=== PATIENT | female | born 1965 | race Caucasian/White ===

== ENCOUNTER 2017-04-13 16:19 | Emergency (ER) | payer OTHER ==
[~2017-04-13] VITALS: Ht 162.6 cm; Wt 54.0 kg
[2017-04-13 16:29] VITALS: Ht 162.6 cm; Wt 54.0 kg
[2017-04-13] MEDS ORDERED: ONDANSETRON (ODT) 4 MG TAB ODT STA (20:35)
[2017-04-13] MEDS ORDERED: HYDROCODONE/APAP (5/325) TAB PO ONE (21:00)
--- NOTE | 2017-04-13 21:10 | RADRPT ---
PROCEDURE: XR Right Ankle. CLINICAL INDICATION: Trauma due to a fall. Right ankle pain. TECHNIQUE: 3 views. Frontal, lateral, and oblique. COMPARISON: None. FINDINGS: There is no fracture or dislocation. There is lateral soft tissue swelling. The soft tissues are otherwise normal. Articular surfaces are intact. There is no lytic or blastic lesion. There is no radiopaque foreign body. IMPRESSION: 1. Lateral soft tissue swelling. 2. Otherwise unremarkable images of the right ankle. RPTAT: QQ .Dameon Victoria MD, MD Date Time Electronically viewed and signed by .Dameon Victoria MD, MD on 04/13/2017 21:10 .R/
--- NOTE | 2017-04-13 21:10 | RADRPT ---
PROCEDURE: XR Right Foot. CLINICAL INDICATION: Trauma due to a fall. Right foot pain. TECHNIQUE: 3 views. Frontal, lateral, and oblique. COMPARISON: None. FINDINGS: There is no fracture or dislocation. The soft tissues are normal. Articular surfaces are intact. There is no lytic or blastic lesion. There is no radiopaque foreign body. IMPRESSION: 1. Normal images of the right foot. RPTAT: QQ .Dameon Victoria MD, MD Date Time Electronically viewed and signed by .Dameon Victoria MD, on 04/13/2017 21:10 .R/
[2017-04-13] MEDS ORDERED: BACI28.34 TOP (21:15)
[2017-04-13] MEDS ORDERED: NAPR-260 PO (21:15)
--- NOTE | 2017-04-13 21:35 | ERD ---
ER Documentation Chief Complaint Chief Complaint PATIENT BIB RA C/O RIGHT FOOT PAIN S/P TRIP AND FALL YESTERDAY DENIES KO HPI Patient is a 52-year-old female brought in by ambulance with complaints of right foot and right lateral ankle pain after stepping into a pothole yesterday. She states she felt a pop/crack when the injury occurred. She has noticed associated swelling. Symptoms are worse with ambulation. She has taken no medication for relief of symptoms. She denies fevers, chills, other injuries, head injury, or other symptoms currently. ROS All systems reviewed and are negative except as per history of present illness. Medications Home Meds Active Scripts Bacitracin* (Bacitracin Zinc Oint*) 28.35 Gm Oint, 1 APPLIC TOP BID, #1 TUB APPLI TO Prov:LEATHA CHUN PA-C 04/13/17 Naproxen* (Naprosyn*) 500 Mg Tablet, 500 MG PO BID Y for PAIN AND/OR INFLAMMATION, #30 TAB Prov:LEATHA CHUN PA-C 04/13/17 Allergies Allergies: Coded Allergies: Penicillins (Verified Allergy, Unknown, 04/13/17) PMhx/Soc History of Surgery: No Anesthesia Reaction: No Hx Neurological Disorder: No Hx Respiratory Disorders: No Hx Cardiac Disorders: No Hx Psychiatric Problems: No Hx Miscellaneous Medical Probl: No Hx Alcohol Use: No Hx Substance Use: Yes (heroin(used to )) Hx Tobacco Use: No Smoking Status: Current every day smoker Physical Exam Vitals Vital Signs Date Time Temp Pulse Resp B/P Pulse Ox O2 Delivery O2 Flow Rate FiO2 04/13/17 16:29 98.9 119 18 111/67 100 Physical Exam Const: Toxic, well-appearing female in no acute distress. Head: Atraumatic Eyes: Normal Conjunctiva ENT: Normal External Ears, Nose and Mouth. Ext: Soft tissue swelling noted to the lateral foot and to the lateral malleolus. There is tenderness palpation of the lateral malleolus of the right lower extremity. No obvious deformity. No open fracture. 2+ DP pulses noted in the right foot. Neur: Awake and alert Psych: Normal Mood and Affect Results 24 hrs Current Medications Medications (Trade) Dose Ordered Sig/Royce Route PRN Reason Start Time Stop Time Status Last Admin Dose Admin Acetaminophen/ Hydrocodone Bitart ([place] (5/325)) 1 tab ONCE ONCE PO 04/13/17 21:00 04/13/17 21:01 DC 04/13/17 20:38 Ondansetron HCl (Zofran Odt) 4 mg ONCE STAT ODT 04/13/17 20:35 04/13/17 20:37 DC 04/13/17 20:38 Procedures/MDM 52-year-old female presents to the emergency department with complaints of right foot and right ankle pain. X-rays were negative for any acute fracture. History and physical examination is consistent with a right ankle sprain. The patient was placed in an Mark wrap and was neurovascularly intact distally post application. The patient was given crutches with training. Patient was given copies of the negative x-ray results. She was discharged with prescription for naproxen, and because she also had an abrasion on the right lateral foot she is given a prescription for bacitracin. Patient was in agreement with the discharge diagnosis and plan. No evidence of life-threatening pathology at time of discharge. Pt/family in agreement with discharge plan/diagnosis. Pt/family advised to return immediately with any new or worsening symptoms. Follow-up with primary care physician within the next 1-2 days. Disclaimer: Inadvertent spelling and grammatical errors are likely due to EHR/ dictation software use and do not reflect on the overall quality of patient care. Also, please note that the electronic time recorded on this note does not necessarily reflect the actual time of the patient encounter. PROCEDURE: XR Right Ankle. CLINICAL INDICATION: Trauma due to a fall. Right ankle pain. TECHNIQUE: 3 views. Frontal, lateral, and oblique. COMPARISON: None. FINDINGS: There is no fracture or dislocation. There is lateral soft tissue swelling. The soft tissues are otherwise normal. Articular surfaces are intact. There is no lytic or blastic lesion. There is no radiopaque foreign body. IMPRESSION: 1. Lateral soft tissue swelling. 2. Otherwise unremarkable images of the right ankle. RPTAT: QQ .Dameon Victoria MD, MD Date Time Electronically viewed and signed by .Dameon Victoria MD, MD on 04/13/2017 21:10 PROCEDURE: XR Right Foot. CLINICAL INDICATION: Trauma due to a fall. Right foot pain. TECHNIQUE: 3 views. Frontal, lateral, and oblique. COMPARISON: None. FINDINGS: There is no fracture or dislocation. The soft tissues are normal. Articular surfaces are intact. There is no lytic or blastic lesion. There is no radiopaque foreign body. IMPRESSION: 1. Normal images of the right foot. RPTAT: QQ .Dameon Victoria MD, MD Date Time Electronically viewed and signed by .Dameon Victoria MD, on 04/13/2017 21:10 Departure Diagnosis: Primary Impression: Ankle sprain Encounter type: initial encounter Involved ligament of ankle: unspecified ligament Laterality: right Qualified Code: S93.401A - Sprain of right ankle , unspecified ligament, initial encounter Additional Impression: Abrasion Condition: Fair Patient Instructions: Treating Ankle Sprains, Abrasion Referrals: [facility] YOU HAVE RECEIVED A MEDICAL SCREENING EXAM AND THE RESULTS INDICATE THAT YOU DO NOT HAVE A CONDITION THAT REQUIRES URGENT TREATMENT IN THE EMERGENCY DEPARTMENT. FURTHER EVALUATION AND TREATMENT OF YOUR CONDITION CAN WAIT UNTIL YOU ARE SEEN IN YOUR DOCTORS OFFICE WITHIN THE NEXT 1-2 DAYS. IT IS YOUR RESPONSIBILITY TO MAKE AN APPOINTMENT FOR FOLOW-UP CARE. IF YOU HAVE A PRIMARY DOCTOR --you should call your primary doctor and schedule an appointment IF YOU DO NOT HAVE A PRIMARY DOCTOR YOU CAN CALL OUR PHYSICIAN REFERRAL HOTLINE AT IF YOU CAN NOT AFFORD TO SEE A PHYSICIAN YOU CAN CHOSE FROM THE FOLLOWING [facility] CL[facility]ICS [facility] [address] [facility] [address] [facility] [facility] [address] [facility] [address] [facility] [address] [facility]. [facility]. [address] Additional Instructions: Follow up with your PCP within the next 1-3 days for a repeat evaluation. If you require a referral to a specialist, your Primary Care Provider may be able to provide this for you. In most patient cases, a referral is not required. If you have further questions regarding this matter, please ask your Primary Care Provider. Return the the emergency department immediately if symptoms worsen or change. If you have any questions regarding medications, ask your pharmacist or us before you leave. If any adverse reactions, occur while taking your medications, discontinue the treatment and return to the emergency department immediately. If any new or worsening symptoms, uncontrolled fevers, or other unexplained symptoms occur, return to the emergency department immediately. Take your medications as directed, and complete the entire course of treatment. LEATHA CHUN PA-C Apr 13, 2017 21:35
--- NOTE | 2017-04-13 21:35 | ERD ---
ER Documentation Chief Complaint Chief Complaint PATIENT BIB RA C/O RIGHT FOOT PAIN S/P TRIP AND FALL YESTERDAY DENIES KO HPI Patient is a 52-year-old female brought in by ambulance with complaints of right foot and right lateral ankle pain after stepping into a pothole yesterday. She states she felt a pop/crack when the injury occurred. She has noticed associated swelling. Symptoms are worse with ambulation. She has taken no medication for relief of symptoms. She denies fevers, chills, other injuries, head injury, or other symptoms currently. ROS All systems reviewed and are negative except as per history of present illness. Medications Home Meds Active Scripts Bacitracin* (Bacitracin Zinc Oint*) 28.35 Gm Oint, 1 APPLIC TOP BID, #1 TUB APPLI TO Prov:LEATHA CHUN PA-C 04/13/17 Naproxen* (Naprosyn*) 500 Mg Tablet, 500 MG PO BID Y for PAIN AND/OR INFLAMMATION, #30 TAB Prov:LEATHA CHUN PA-C 04/13/17 Allergies Allergies: Coded Allergies: Penicillins (Verified Allergy, Unknown, 04/13/17) PMhx/Soc History of Surgery: No Anesthesia Reaction: No Hx Neurological Disorder: No Hx Respiratory Disorders: No Hx Cardiac Disorders: No Hx Psychiatric Problems: No Hx Miscellaneous Medical Probl: No Hx Alcohol Use: No Hx Substance Use: Yes (heroin(used to )) Hx Tobacco Use: No Smoking Status: Current every day smoker Physical Exam Vitals Vital Signs Date Time Temp Pulse Resp B/P Pulse Ox O2 Delivery O2 Flow Rate FiO2 04/13/17 16:29 98.9 119 18 111/67 100 Physical Exam Const: Toxic, well-appearing female in no acute distress. Head: Atraumatic Eyes: Normal Conjunctiva ENT: Normal External Ears, Nose and Mouth. Ext: Soft tissue swelling noted to the lateral foot and to the lateral malleolus. There is tenderness palpation of the lateral malleolus of the right lower extremity. No obvious deformity. No open fracture. 2+ DP pulses noted in the right foot. Neur: Awake and alert Psych: Normal Mood and Affect Results 24 hrs Current Medications Medications (Trade) Dose Ordered Sig/Royce Route PRN Reason Start Time Stop Time Status Last Admin Dose Admin Acetaminophen/ Hydrocodone Bitart ([place] (5/325)) 1 tab ONCE ONCE PO 04/13/17 21:00 04/13/17 21:01 DC 04/13/17 20:38 Ondansetron HCl (Zofran Odt) 4 mg ONCE STAT ODT 04/13/17 20:35 04/13/17 20:37 DC 04/13/17 20:38 Procedures/MDM 52-year-old female presents to the emergency department with complaints of right foot and right ankle pain. X-rays were negative for any acute fracture. History and physical examination is consistent with a right ankle sprain. The patient was placed in an Mark wrap and was neurovascularly intact distally post application. The patient was given crutches with training. Patient was given copies of the negative x-ray results. She was discharged with prescription for naproxen, and because she also had an abrasion on the right lateral foot she is given a prescription for bacitracin. Patient was in agreement with the discharge diagnosis and plan. No evidence of life-threatening pathology at time of discharge. Pt/family in agreement with discharge plan/diagnosis. Pt/family advised to return immediately with any new or worsening symptoms. Follow-up with primary care physician within the next 1-2 days. Disclaimer: Inadvertent spelling and grammatical errors are likely due to EHR/ dictation software use and do not reflect on the overall quality of patient care. Also, please note that the electronic time recorded on this note does not necessarily reflect the actual time of the patient encounter. PROCEDURE: XR Right Ankle. CLINICAL INDICATION: Trauma due to a fall. Right ankle pain. TECHNIQUE: 3 views. Frontal, lateral, and oblique. COMPARISON: None. FINDINGS: There is no fracture or dislocation. There is lateral soft tissue swelling. The soft tissues are otherwise normal. Articular surfaces are intact. There is no lytic or blastic lesion. There is no radiopaque foreign body. IMPRESSION: 1. Lateral soft tissue swelling. 2. Otherwise unremarkable images of the right ankle. RPTAT: QQ .Dameon Victoria MD, MD Date Time Electronically viewed and signed by .Dameon Victoria MD, MD on 04/13/2017 21:10 PROCEDURE: XR Right Foot. CLINICAL INDICATION: Trauma due to a fall. Right foot pain. TECHNIQUE: 3 views. Frontal, lateral, and oblique. COMPARISON: None. FINDINGS: There is no fracture or dislocation. The soft tissues are normal. Articular surfaces are intact. There is no lytic or blastic lesion. There is no radiopaque foreign body. IMPRESSION: 1. Normal images of the right foot. RPTAT: QQ .Dameon Victoria MD, MD Date Time Electronically viewed and signed by .Dameon Victoria MD, on 04/13/2017 21:10 Departure Diagnosis: Primary Impression: Ankle sprain Encounter type: initial encounter Involved ligament of ankle: unspecified ligament Laterality: right Qualified Code: S93.401A - Sprain of right ankle , unspecified ligament, initial encounter Additional Impression: Abrasion Condition: Fair Patient Instructions: Treating Ankle Sprains, Abrasion Referrals: [facility] YOU HAVE RECEIVED A MEDICAL SCREENING EXAM AND THE RESULTS INDICATE THAT YOU DO NOT HAVE A CONDITION THAT REQUIRES URGENT TREATMENT IN THE EMERGENCY DEPARTMENT. FURTHER EVALUATION AND TREATMENT OF YOUR CONDITION CAN WAIT UNTIL YOU ARE SEEN IN YOUR DOCTORS OFFICE WITHIN THE NEXT 1-2 DAYS. IT IS YOUR RESPONSIBILITY TO MAKE AN APPOINTMENT FOR FOLOW-UP CARE. IF YOU HAVE A PRIMARY DOCTOR --you should call your primary doctor and schedule an appointment IF YOU DO NOT HAVE A PRIMARY DOCTOR YOU CAN CALL OUR PHYSICIAN REFERRAL HOTLINE AT IF YOU CAN NOT AFFORD TO SEE A PHYSICIAN YOU CAN CHOSE FROM THE FOLLOWING [facility] CLINICS [facility] [address] [facility] [address] [facility] [facility] [address] [facility] [address] [facility] [address] [facility]. [facility]. [address] Additional Instructions: Follow up with your PCP within the next 1-3 days for a repeat evaluation. If you require a referral to a specialist, your Primary Care Provider may be able to provide this for you. In most patient cases, a referral is not required. If you have further questions regarding this matter, please ask your Primary Care Provider. Return the the emergency department immediately if symptoms worsen or change. If you have any questions regarding medications, ask your pharmacist or us before you leave. If any adverse reactions, occur while taking your medications, discontinue the treatment and return to the emergency department immediately. If any new or worsening symptoms, uncontrolled fevers, or other unexplained symptoms occur, return to the emergency department immediately. Take your medications as directed, and complete the entire course of treatment. LEATHA CHUN PA-C Apr 13, 2017 21:35
--- NOTE | 2017-04-13 21:35 | ERD ---
ER Documentation Chief Complaint Chief Complaint PATIENT BIB RA C/O RIGHT FOOT PAIN S/P TRIP AND FALL YESTERDAY DENIES KO HPI Patient is a 52-year-old female brought in by ambulance with complaints of right foot and right lateral ankle pain after stepping into a pothole yesterday. She states she felt a pop/crack when the injury occurred. She has noticed associated swelling. Symptoms are worse with ambulation. She has taken no medication for relief of symptoms. She denies fevers, chills, other injuries, head injury, or other symptoms currently. ROS All systems reviewed and are negative except as per history of present illness. Medications Home Meds Active Scripts Bacitracin* (Bacitracin Zinc Oint*) 28.35 Gm Oint, 1 APPLIC TOP BID, #1 TUB APPLI TO Prov:LEATHA CHUN PA-C 04/13/17 Naproxen* (Naprosyn*) 500 Mg Tablet, 500 MG PO BID Y for PAIN AND/OR INFLAMMATION, #30 TAB Prov:LEATHA CHUN PA-C 04/13/17 Allergies Allergies: Coded Allergies: Penicillins (Verified Allergy, Unknown, 04/13/17) PMhx/Soc History of Surgery: No Anesthesia Reaction: No Hx Neurological Disorder: No Hx Respiratory Disorders: No Hx Cardiac Disorders: No Hx Psychiatric Problems: No Hx Miscellaneous Medical Probl: No Hx Alcohol Use: No Hx Substance Use: Yes (heroin(used to )) Hx Tobacco Use: No Smoking Status: Current every day smoker Physical Exam Vitals Vital Signs Date Time Temp Pulse Resp B/P Pulse Ox O2 Delivery O2 Flow Rate FiO2 04/13/17 16:29 98.9 119 18 111/67 100 Physical Exam Const: Toxic, well-appearing female in no acute distress. Head: Atraumatic Eyes: Normal Conjunctiva ENT: Normal External Ears, Nose and Mouth. Ext: Soft tissue swelling noted to the lateral foot and to the lateral malleolus. There is tenderness palpation of the lateral malleolus of the right lower extremity. No obvious deformity. No open fracture. 2+ DP pulses noted in the right foot. Neur: Awake and alert Psych: Normal Mood and Affect Results 24 hrs Current Medications Medications (Trade) Dose Ordered Sig/Royce Route PRN Reason Start Time Stop Time Status Last Admin Dose Admin Acetaminophen/ Hydrocodone Bitart ([place] (5/325)) 1 tab ONCE ONCE PO 04/13/17 21:00 04/13/17 21:01 DC 04/13/17 20:38 Ondansetron HCl (Zofran Odt) 4 mg ONCE STAT ODT 04/13/17 20:35 04/13/17 20:37 DC 04/13/17 20:38 Procedures/MDM 52-year-old female presents to the emergency department with complaints of right foot and right ankle pain. X-rays were negative for any acute fracture. History and physical examination is consistent with a right ankle sprain. The patient was placed in an Mark wrap and was neurovascularly intact distally post application. The patient was given crutches with training. Patient was given copies of the negative x-ray results. She was discharged with prescription for naproxen, and because she also had an abrasion on the right lateral foot she is given a prescription for bacitracin. Patient was in agreement with the discharge diagnosis and plan. No evidence of life-threatening pathology at time of discharge. Pt/family in agreement with discharge plan/diagnosis. Pt/family advised to return immediately with any new or worsening symptoms. Follow-up with primary care physician within the next 1-2 days. Disclaimer: Inadvertent spelling and grammatical errors are likely due to EHR/ dictation software use and do not reflect on the overall quality of patient care. Also, please note that the electronic time recorded on this note does not necessarily reflect the actual time of the patient encounter. PROCEDURE: XR Right Ankle. CLINICAL INDICATION: Trauma due to a fall. Right ankle pain. TECHNIQUE: 3 views. Frontal, lateral, and oblique. COMPARISON: None. FINDINGS: There is no fracture or dislocation. There is lateral soft tissue swelling. The soft tissues are otherwise normal. Articular surfaces are intact. There is no lytic or blastic lesion. There is no radiopaque foreign body. IMPRESSION: 1. Lateral soft tissue swelling. 2. Otherwise unremarkable images of the right ankle. RPTAT: QQ .Dameon Victoria MD, MD Date Time Electronically viewed and signed by .Dameon Victoria MD, MD on 04/13/2017 21:10 PROCEDURE: XR Right Foot. CLINICAL INDICATION: Trauma due to a fall. Right foot pain. TECHNIQUE: 3 views. Frontal, lateral, and oblique. COMPARISON: None. FINDINGS: There is no fracture or dislocation. The soft tissues are normal. Articular surfaces are intact. There is no lytic or blastic lesion. There is no radiopaque foreign body. IMPRESSION: 1. Normal images of the right foot. RPTAT: QQ .Dameon Victoria MD, MD Date Time Electronically viewed and signed by .Dameon Victoria MD, on 04/13/2017 21:10 Departure Diagnosis: Primary Impression: Ankle sprain Encounter type: initial encounter Involved ligament of ankle: unspecified ligament Laterality: right Qualified Code: S93.401A - Sprain of right ankle , unspecified ligament, initial encounter Additional Impression: Abrasion Condition: Fair Patient Instructions: Treating Ankle Sprains, Abrasion Referrals: [facility] YOU HAVE RECEIVED A MEDICAL SCREENING EXAM AND THE RESULTS INDICATE THAT YOU DO NOT HAVE A CONDITION THAT REQUIRES URGENT TREATMENT IN THE EMERGENCY DEPARTMENT. FURTHER EVALUATION AND TREATMENT OF YOUR CONDITION CAN WAIT UNTIL YOU ARE SEEN IN YOUR DOCTORS OFFICE WITHIN THE NEXT 1-2 DAYS. IT IS YOUR RESPONSIBILITY TO MAKE AN APPOINTMENT FOR FOLOW-UP CARE. IF YOU HAVE A PRIMARY DOCTOR --you should call your primary doctor and schedule an appointment IF YOU DO NOT HAVE A PRIMARY DOCTOR YOU CAN CALL OUR PHYSICIAN REFERRAL HOTLINE AT IF YOU CAN NOT AFFORD TO SEE A PHYSICIAN YOU CAN CHOSE FROM THE FOLLOWING [facility] CLINICS [facility] [address] [facility] [address] [facility] [address] [facility] [address] [facility] [address] [facility]. [facility]. [address] Additional Instructions: Follow up with your PCP within the next 1-3 days for a repeat evaluation. If you require a referral to a specialist, your Primary Care Provider may be able to provide this for you. In most patient cases, a referral is not required. If you have further questions regarding this matter, please ask your Primary Care Provider. Return the the emergency department immediately if symptoms worsen or change. If you have any questions regarding medications, ask your pharmacist or us before you leave. If any adverse reactions, occur while taking your medications, discontinue the treatment and return to the emergency department immediately. If any new or worsening symptoms, uncontrolled fevers, or other unexplained symptoms occur, return to the emergency department immediately. Take your medications as directed, and complete the entire course of treatment. LEATHA CHUN PA-C Apr 13, 2017 21:35
[2017-04-13 21:40] VITALS: BP 128/73; PULSE 98; RESP 17; TEMP 98.7
== END 2017-04-13 21:40 | disposition home or self-care (01) ==
LOC: FTE 16:19
DX: S93.401A Sprain of unspecified ligament of right ankle, initial encounter (principal); F17.210 Nicotine dependence, cigarettes, uncomplicated; S90.811A Abrasion, right foot, initial encounter; W01.0XXA Fall on same level from slipping, tripping and stumbling without subsequent striking against object, initial encounter; Y92.9 Unspecified place or not applicable
CPT/HCPCS: 73610; 73630; Z7502; Z7610